=== PATIENT | female | born 1985 | race African-American/Black ===

== ENCOUNTER 2021-11-03 05:25 | Emergency (ER) | payer SELFPAY ==
[~2021-11-03] VITALS: Ht 165.1 cm; Wt 71.0 kg
[2021-11-03] MEDS ORDERED: DIPHENHYDRAMINE 50MG/ML VIAL IV ONE (06:00)
[2021-11-03] MEDS ORDERED: PROCHLORPERAZINE 10MG/2ML VIAL IV PRN (06:00)
[2021-11-03] MEDS ORDERED: SODIUM CHLORIDE 0.9% 1,000 ML IV ONE (06:00)
[2021-11-03 06:22] LABS: BASOPHILS % 0.2 % (0.0-2.0); EOSINOPHILS % 3.4 % (0.0-5.0); HEMATOCRIT. 40.7 % (36.0-48.0); HEMOGLOBIN. 13.5 g/dL (12.0-16.0); LYMPHOCYTES % 34.2 % (20.0-50.0); MEAN CORPUSCULAR HEMOGLOBIN 29.4 pg (28.0-32.0); MEAN CORPUSCULAR VOLUME 88.4 fL (81.0-99.0); MEAN PLATELET VOLUME 9.2 fl (7.4-10.4); MONOCYTES % 6.7 % (2.0-8.0); NEUTROPHILS % 55.5 % (40.0-76.0); PLATELET 325 x1000/uL (130-400); RED CELL DISTRIBUTION WIDTH 13.7 % (11.6-14.6)
[2021-11-03 06:27] LABS: CHLORIDE 110 mEq/L (98-107)
[2021-11-03 06:44] LABS: HCG SCREEN NEGATIVE
[2021-11-03 07:43] VITALS: BP 118/86
== END 2021-11-03 08:57 | disposition home or self-care (01) ==
LOC: ER 05:25
DX: G43.909 Migraine, unspecified, not intractable, without status migrainosus (principal)
CPT/HCPCS: 36415; 80053; 84703; 85025; 96361; 96374; 96375; 99284; J0780; J1200; J7030